=== PATIENT | female | born 1995 | race Caucasian/White ===

== ENCOUNTER 2017-02-18 12:42 | Emergency (ER) | payer OTHER, BC ==
[~2017-02-18] VITALS: Ht 154.9 cm; Wt 54.9 kg
[~2017-02-18 12:42] MED LIST: BC PILL; CLIN300C3 PO; HYDR-1231 PO; ONDA4TAB11 PO; OXYC-309 PO; SULF1TAB35 PO; SULF1TAB38 PO
[2017-02-18] MEDS ORDERED: CYCL5TAB PO (12:57)
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
[2017-02-18 13:51] VITALS: BP 122/69
== END 2017-02-18 13:51 | disposition home or self-care (01) ==
LOC: EDUNIT# 12:42 → ER 12:44
DX: S29.012A Strain of muscle and tendon of back wall of thorax, initial encounter (principal); S16.1XXA Strain of muscle, fascia and tendon at neck level, initial encounter; V49.40XA Driver injured in collision with unspecified motor vehicles in traffic accident, initial encounter
CPT/HCPCS: 71101; 72125; 99282

== ENCOUNTER 2018-02-10 09:27 | Emergency (ER) | payer BC ==
[~2018-02-10] VITALS: Ht 154.9 cm; Wt 59.0 kg
[2018-02-10 10:03] VITALS: BP 109/67
== END 2018-02-10 11:02 | disposition left against medical advice (07) ==
LOC: EDUNIT# 09:27 → ER 09:30
DX: R07.81 Pleurodynia (principal); F17.210 Nicotine dependence, cigarettes, uncomplicated
CPT/HCPCS: 99283

== ENCOUNTER → 2018-02-10 | Outpatient (CLI) | payer BC ==
[~2018-02-10] MED LIST changes: +CYCL5TAB PO
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
== END ==
LOC: RAD 12:18
PROVIDERS: ATTEND Nurse Practitioner Family
DX: R05 Cough (principal); R07.81 Pleurodynia
CPT/HCPCS: 71101